=== PATIENT | male | born 1980 | race Caucasian/White ===

== ENCOUNTER 2018-04-07 09:47 | Emergency (ER) | payer OTHER ==
[2018-04-07 10:00] VITALS: BP 126/86
--- NOTE | 2018-04-07 10:21 | UC ---
Skin Complaint HPI - HPI Summary HPI Summary: The patient is a 37-year-old male with a bilateral groin rash 2 days. It causes a slightly burning sensation. He is not a diabetic. 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 - History of Current Complaint Chief Complaint: UCRash Time Seen by Provider: 04/07/18 10:10 Stated Complaint: RASH Hx Obtained From: Patient Onset/Duration: Gradual Onset, Lasting Days Timing: Constant Onset Severity: Mild Current Severity: Mild Pain Intensity: 1 Pain Scale Used: 0-10 Numeric Location: Generalized Character: Redness Aggravating Factor(s): Nothing Alleviating Factor(s): Nothing Associated Signs & Symptoms: Positive: Rash - Allergy/Home Medications Allergies/Adverse Reactions: Allergies Allergy/AdvReac Type Severity Reaction Status Date / Time No Known Allergies Allergy Verified 04/07/18 09:58 Home Medications: Home Medications Sertraline HCl [Zoloft] 25 mg PO DAILY 04/07/18 [History Confirmed 04/07/18] Review of Systems Constitutional: Negative Skin: Negative Eyes: Negative ENT: Negative Respiratory: Negative Cardiovascular: Negative Gastrointestinal: Negative Genitourinary: Negative Motor: Negative Neurovascular: Negative Musculoskeletal: Negative Neurological: Negative Psychological: Negative Is Patient Immunocompromised?: No All Other Systems Reviewed And Are Negative: Yes PMH/Surg Hx/FS Hx/Imm Hx Previously Healthy: Yes Other History Of: Negative For: Anticoagulant Therapy - Surgical History Surgical History: None - Family History Known Family History: Positive: Hypertension - Social History Alcohol Use: Weekly Substance Use Type: None Smoking Status (MU): Never Smoked Tobacco Physical Exam Triage Information Reviewed: Yes Appearance: Well-Appearing, No Pain Distress, Well-Nourished Vital Signs: Initial Vital Signs Temp 98.1 F 04/07/18 09:54 Pulse 80 04/07/18 09:54 Resp 18 04/07/18 09:54 BP 126/86 04/07/18 09:54 Pulse Ox 99 04/07/18 09:54 Vital Signs Reviewed: Yes Eyes: Positive: Conjunctiva Clear ENT: Positive: Hearing grossly normal. Negative: Nasal congestion, Nasal drainage, Trismus, Muffled voice, Hoarse voice Neck: Positive: Supple, Nontender, No Lymphadenopathy Respiratory: Positive: Lungs clear, Normal breath sounds, No respiratory distress Cardiovascular: Positive: RRR, No Murmur Musculoskeletal: Positive: ROM Intact, No Edema Neurological: Positive: Alert Psychological Exam: Normal Skin: Positive: Other - red macerated rash groin/well demarcated Course/Dx - Diagnoses Provider Diagnoses: tinea cruruis Discharge - Sign-Out/Discharge Documenting (check all that apply): Patient Departure - Discharge Plan Condition: Stable Disposition: HOME Patient Education Materials: Pope[employer] Itch (ED) Referrals: No Primary Care Phys,NOPCP [Primary Care Provider] - Additional Instructions: epsom salts cool compresses for 10 minutes twice daily the apply lotrimen cream (available OTC) use this for 2 weeks - Billing Disposition and Condition Condition: STABLE Disposition: Home
== END 2018-04-07 10:22 | disposition home or self-care (01) ==
LOC: UCEAST 09:47
DX: B35.6 Tinea cruris (principal)
CPT/HCPCS: 99212; G0463

== ENCOUNTER 2021-10-09 13:05 | Inpatient (IN) ==
[2021-10-09 14:00] LABS: ABS Lymphocytes 0.8 10^3/ul (1.0-4.8); ABS Monocytes 0.3 10^3/ul (0-0.8); ABS Neutrophils 5.9 10^3/ul (1.5-7.7); Eosinophil % 0.2 %; Hematocrit 44 % (42-52); Hemoglobin 14.9 g/dL (14.0-18.0); Lymphocyte % 11.9 %; Mean Corpuscular HGB Conc 34 g/dL (31-36); Mean Corpuscular Hemoglobin 29 pg (27-31); Mean Corpuscular Volume 85 fL (80-94); Mean Platelet Volume 7.7 fL (7.4-10.4); Platelet Count 325 10^3/uL (150-450); Red Blood Count 5.24 10^6 /uL (4.18-5.48); Red Cell Distribution Width 13 % (10-15)
[2021-10-09 14:17] LABS: ALT 17 U/L (7-52); AST 19 U/L (13-39); Albumin 4.7 g/dL (3.2-5.2); Albumin/Globulin Ratio 1.9 (1-3); Alkaline Phosphatase 74 U/L (35-149); Anion Gap 7 mmol/L (2-11); Blood Urea Nitrogen 15 mg/dL (6-24); CO2 Carbon Dioxide 26 mmol/L (22-32); Calcium 9.3 mg/dL (8.6-10.3); Chloride 106 mmol/L (101-111); Globulin 2.5 g/dL (2-4); Glucose 101 mg/dL (70-100); Potassium 3.8 mmol/L (3.5-5.0); Sodium 139 mmol/L (135-145); Total Protein 7.2 g/dL (6.4-8.9); eGFR CKD-EPI 110.1 (>60)
[2021-10-09 14:18] LABS: Urine Benzodiazepine Screen None Detected (None Detect); Urine Cannabinoids Screen None Detected (None Detect); Urine Opiates Screen None Detected (None Detect)
[2021-10-09 14:21] LABS: Urine Appearance Clear; Urine Bilirubin Negative (Negative); Urine Blood Negative (Negative); Urine Color Yellow; Urine Glucose Negative (Negative); Urine Ketones 1+ (Negative); Urine Nitrite Negative (Negative); Urine Protein Negative (Negative); Urine Specific Gravity 1.025 (1.002-1.030); Urine Urobilinogen Positive (Negative)
[2021-10-09 14:36] LABS: Acetaminophen < 15 mcg/mL; Alcohol, S < 13 mg/dL (<13); Salicylate < 2.50 mg/dL (<30)
[2021-10-09 14:51] LABS: TSH Ultra Thyroid Stim Horm 2.24 mcIU/mL (0.34-5.60)
[2021-10-09] MEDS ORDERED: Al Hydrox/Mg Hydrox/Simet LIQ 30 ML UDC PO PRN (18:09)
[2021-10-10] MEDS: Vitamin THERAPEUTIC TAB PO SCH (10:19)
[2021-10-11] MEDS: Vitamin THERAPEUTIC TAB PO SCH (10:00)
[2021-10-12] MEDS: Vitamin THERAPEUTIC TAB PO SCH (09:35)
[2021-10-13 08:38] LABS: HDL Cholesterol 54.9 mg/dL
[2021-10-13] MEDS: Vitamin THERAPEUTIC TAB PO SCH (09:59)
[2021-10-14] MEDS: Vitamin THERAPEUTIC TAB PO SCH (07:54)
[2021-10-15] MEDS: Vitamin THERAPEUTIC TAB PO SCH (09:33)
[2021-10-16] MEDS: Vitamin THERAPEUTIC TAB PO SCH (11:23)
[2021-10-17 10:56] LABS: Albumin 4.7 g/dL (3.2-5.2); Albumin/Globulin Ratio 1.7 (1-3); Calcium 10.2 mg/dL (8.6-10.3); Globulin 2.8 g/dL (2-4); Potassium 4.2 mmol/L (3.5-5.0); Total Bilirubin 0.7 mg/dL (0.2-1.0); Total Protein 7.5 g/dL (6.4-8.9); eGFR CKD-EPI 102.5 (>60)
[2021-10-17] MEDS: Vitamin THERAPEUTIC TAB PO SCH (11:02)
[2021-10-18] MEDS: Vitamin THERAPEUTIC TAB PO SCH (09:53)
[2021-10-19] MEDS: Vitamin THERAPEUTIC TAB PO SCH (07:39)
[2021-10-20] MEDS: Vitamin THERAPEUTIC TAB PO SCH (10:54)
[2021-10-21] MEDS: Vitamin THERAPEUTIC TAB PO SCH (09:40)
[2021-10-22] MEDS: Vitamin THERAPEUTIC TAB PO SCH (12:50)
[2021-10-22 14:25] LABS: ABS Lymphocytes 1.3 10^3/ul (1.0-4.8); ABS Monocytes 0.5 10^3/ul (0-0.8); ABS Neutrophils 7.6 10^3/ul (1.5-7.7); Eosinophil % 0.4 %; Hematocrit 48 % (42-52); Hemoglobin 16.3 g/dL (14.0-18.0); Lymphocyte % 13.6 %; Mean Corpuscular HGB Conc 34 g/dL (31-36); Mean Corpuscular Hemoglobin 29 pg (27-31); Mean Corpuscular Volume 84 fL (80-94); Mean Platelet Volume 7.8 fL (7.4-10.4); Nucleated Red Blood Cells % 0.1; Platelet Count 273 10^3/uL (150-450); Red Blood Count 5.65 10^6 /uL (4.18-5.48); Red Cell Distribution Width 13 % (10-15); White Blood Count 9.4 10^3/uL (3.5-10.8)
[2021-10-23] MEDS: Vitamin THERAPEUTIC TAB PO SCH (08:36)
[2021-10-23] MEDS ORDERED: risperiDONE-M 1 mg Oradis TAB PO SCH (09:00)
[2021-10-23] MEDS ORDERED: Haloperidol LIQ ORALSYR 2 MG/ML PO PRN (16:11)
[2021-10-23] MEDS: Haloperidol LIQ ORALSYR 2 MG/ML PO SCH (20:37)
[2021-10-24] MEDS: Haloperidol LIQ ORALSYR 2 MG/ML PO SCH (08:47)
[2021-10-24] MEDS: Vitamin THERAPEUTIC TAB PO SCH (08:48)
[2021-10-24] MEDS: Haloperidol LIQ ORALSYR 2 MG/ML PO PRN (14:37)
[2021-10-24] MEDS: RISPERIDONE 1 MG/ML PO SCH (20:28)
[2021-10-25] MEDS: Vitamin THERAPEUTIC TAB PO SCH (12:33)
[2021-10-25] MEDS: RISPERIDONE PO SCH (12:35)
[2021-10-25] MEDS: ORALSYR PO SCH (12:35)
[2021-10-25] MEDS: RISPERIDONE 1 MG/ML PO SCH (21:31)
[2021-10-26] MEDS: Haloperidol LIQ ORALSYR 2 MG/ML PO PRN ×3 (02:45→20:56)
[2021-10-26] MEDS: Vitamin THERAPEUTIC TAB PO SCH (09:54)
[2021-10-26] MEDS: RISPERIDONE PO SCH ×2 (09:54→20:56)
[2021-10-26] MEDS: ORALSYR PO SCH ×2 (09:54→20:56)
[2021-10-27] MEDS: Vitamin THERAPEUTIC TAB PO SCH (11:38)
[2021-10-27] MEDS: RISPERIDONE PO SCH ×2 (11:39→21:56)
[2021-10-27] MEDS: ORALSYR PO SCH ×2 (11:39→21:56)
[2021-10-27] MEDS: Haloperidol LIQ ORALSYR 2 MG/ML PO PRN (23:52)
[2021-10-28] MEDS: Vitamin THERAPEUTIC TAB PO SCH (07:20)
[2021-10-28] MEDS: RISPERIDONE PO SCH (20:28)
[2021-10-28] MEDS: ORALSYR PO SCH (20:28)
[2021-10-28] MEDS ORDERED: RISPERIDONE PO SCH (21:00)
[2021-10-28] MEDS ORDERED: ORALSYR PO SCH (21:00)
[2021-10-29] MEDS: Vitamin THERAPEUTIC TAB PO SCH (07:52)
[2021-10-29] MEDS: RISPERIDONE PO SCH (20:38)
[2021-10-29] MEDS: ORALSYR PO SCH (20:38)
[2021-10-30] MEDS: Vitamin THERAPEUTIC TAB PO SCH (09:32)
[2021-10-30] MEDS ORDERED: Paliperidone SUSTENNA 156 MG/1 ML IM ONE (10:35)
[2021-10-30] MEDS ORDERED: Paliperidone SUSTENNA 234 MG/1.5 ML IM ONE (12:00)
[2021-10-30 19:52] VITALS: BP 114/78
[2021-10-31] MEDS: Haloperidol LIQ ORALSYR 2 MG/ML PO PRN (00:14)
[2021-10-31] MEDS: Vitamin THERAPEUTIC TAB PO SCH (09:25)
== END 2021-10-31 11:25 | disposition home or self-care (01) | DRG 751 ==
LOC: ED 13:05 → BSU 20:53
PROVIDERS: ADMIT Psychiatry & Neurology Psychiatry; ATTEND Psychiatry & Neurology Psychiatry

== ENCOUNTER 2021-11-02 01:50 | Inpatient (IN) ==
[2021-11-02 02:56] LABS: ABS Eosinophils 0.1 10^3/ul (0-0.6); ABS Lymphocytes 1.3 10^3/ul (1.0-4.8); ABS Monocytes 0.5 10^3/ul (0-0.8); ABS Neutrophils 4.2 10^3/ul (1.5-7.7); Eosinophil % 1.2 %; Hematocrit 42 % (42-52); Hemoglobin 14.4 g/dL (14.0-18.0); Lymphocyte % 20.6 %; Mean Corpuscular HGB Conc 34 g/dL (31-36); Mean Corpuscular Hemoglobin 29 pg (27-31); Mean Corpuscular Volume 83 fL (80-94); Mean Platelet Volume 8.1 fL (7.4-10.4); Nucleated Red Blood Cells % 0.1; Platelet Count 241 10^3/uL (150-450); Red Blood Count 5.05 10^6 /uL (4.18-5.48); Red Cell Distribution Width 13 % (10-15); White Blood Count 6.1 10^3/uL (3.5-10.8)
[2021-11-02 03:11] LABS: ALT 20 U/L (7-52); AST 16 U/L (13-39); Albumin 4.5 g/dL (3.2-5.2); Alkaline Phosphatase 58 U/L (35-149); Anion Gap 8 mmol/L (2-11); Blood Urea Nitrogen 15 mg/dL (6-24); CO2 Carbon Dioxide 26 mmol/L (22-32); Calcium 9.8 mg/dL (8.6-10.3); Chloride 102 mmol/L (101-111); Globulin 2.3 g/dL (2-4); Glucose 135 mg/dL (70-100); Potassium 3.5 mmol/L (3.5-5.0); Sodium 136 mmol/L (135-145); Total Protein 6.8 g/dL (6.4-8.9); eGFR CKD-EPI 91.9 (>60)
[2021-11-02 03:38] LABS: Acetaminophen < 15 mcg/mL; Alcohol, S < 13 mg/dL (<13); Salicylate < 2.50 mg/dL (<30)
[2021-11-02 03:53] LABS: TSH Ultra Thyroid Stim Horm 3.27 mcIU/mL (0.34-5.60)
[2021-11-02 08:05] LABS: Urine Benzodiazepine Screen None Detected (None Detect); Urine Cannabinoids Screen None Detected (None Detect); Urine Opiates Screen None Detected (None Detect)
[2021-11-02 08:18] LABS: Urine Appearance Cloudy; Urine Bilirubin Negative (Negative); Urine Blood Negative (Negative); Urine Color Yellow; Urine Glucose Negative (Negative); Urine Ketones Negative (Negative); Urine Nitrite Negative (Negative); Urine Protein Negative (Negative); Urine Specific Gravity 1.025 (1.002-1.030); Urine Urobilinogen Negative (Negative)
[2021-11-02] MEDS ORDERED: Haloperidol 5 mg/ml SDV IV/IM 5 MG/ML AMP IM ONE (09:47)
[2021-11-02] MEDS ORDERED: diPHENhydraMINE IV 50 MG/ML 1 ml VIAL (BENADRYL) IM ONE (09:47)
[2021-11-02] MEDS ORDERED: Al Hydrox/Mg Hydrox/Simet LIQ 30 ML UDC PO PRN (13:20)
[2021-11-02] MEDS ORDERED: Haloperidol LIQ ORALSYR 2 MG/ML PO PRN (13:28)
[2021-11-03] MEDS ORDERED: Paliperidone SUSTENNA 156 MG/1 ML IM ONE (07:56)
[2021-11-03] MEDS ORDERED: RISPERIDONE 1 MG/ML PO SCH (21:00)
[2021-11-03] MEDS: OLANzapine 5 mg TAB*ODT PO PRN (23:05)
[2021-11-07] MEDS: OLANzapine 5 mg TAB*ODT PO PRN (02:12)
[2021-11-10 07:56] VITALS: BP 123/85
[2021-11-10] MEDS: OLANzapine 5 mg TAB*ODT PO PRN (13:38)
== END 2021-11-10 14:35 | disposition home or self-care (01) | DRG 750 ==
LOC: ED 01:50 → BSU 12:06
PROVIDERS: ADMIT Student in an Organized Health Care Education/Training Program; ATTEND Psychiatry & Neurology Psychiatry

== ENCOUNTER 2024-06-14 09:20 | Inpatient (IN) ==
[2024-06-14 15:16] LABS: ABS Lymphocytes 1.5 10^3/uL (1.0-4.8); ABS Monocytes 0.6 10^3/uL (0.0-1.1); ABS Neutrophils 8.5 10^3/uL (1.5-7.6); ABS Nucleated RBC 0.01 10^3/ul; Eosinophil % 0.2 %; Hematocrit 42.5 % (38-53); Hemoglobin 14.1 g/dL (13.2-16.3); Lymphocyte % 13.9 %; Mean Corpuscular Hemoglobin 27.8 pg (27-33); Mean Corpuscular Hgb Conc 33.2 g/dL (31-36); Mean Corpuscular Volume 83.6 fL (80-97); Mean Platelet Volume 8.2 fL (7.5-11.2); Nucleated Red Blood Cells % 0.1 %/100WBC (0.0-0.8); Platelet Count 311 10^3/uL (150-450); Red Blood Count 5.09 10^6/uL (4.06-5.63); Red Cell Distribution Width 13.9 % (12-17); White Blood Count 10.7 10^3/uL (3.6-10.2)
[2024-06-14 15:33] LABS: ALT 47 U/L (7-52); AST 37 U/L (13-39); Acetaminophen < 15 mcg/mL; Albumin 4.6 g/dL (3.2-5.2); Albumin/Globulin Ratio 2.3 (1-3); Alcohol, S < 13 mg/dL (<13); Alkaline Phosphatase 75 U/L (35-149); Anion Gap 11 mmol/L (2-16); Blood Urea Nitrogen 21 mg/dL (6-24); CO2 Carbon Dioxide 24 mmol/L (22-32); Calcium 9.4 mg/dL (8.6-10.3); Chloride 106 mmol/L (101-111); Creatinine, Serum 0.82 mg/dL (0.67-1.17); Glucose 92 mg/dL (70-100); Potassium 3.4 mmol/L (3.5-5.0); Salicylate < 2.50 mg/dL (<30); Sodium 141 mmol/L (135-145); Total Bilirubin 0.8 mg/dL (0.2-1.0); Total Protein 6.6 g/dL (6.4-8.9); Valproic Acid < 10.0 mcg/mL (50-100); eGFR CKD-EPI 110.4 (>60)
[2024-06-14 16:01] LABS: TSH Ultra Thyroid Stim Horm 2.49 mcIU/mL (0.34-5.60)
[2024-06-14] MEDS ORDERED: Al Hydrox/Mg Hydrox/Simet LIQ 30 ML UDC PO PRN (16:30)
[2024-06-14] MEDS: Valproic Acid LIQ 250 MG/5 ML UDC PO SCH (20:10)
[2024-06-14] MEDS: Atropine 1% (ORAL/SL) 15 ML BTL SL SCH (21:15)
[2024-06-17] MEDS: Polyethylene Glycol 3350 17 GM PACKET PO PRN (08:28)
[2024-06-17 08:32] LABS: HDL Cholesterol 42.9 mg/dL
[2024-06-19] MEDS: Polyethylene Glycol 3350 17 GM PACKET PO SCH (20:05)
[2024-06-20] MEDS: Cephalexin SUSP ORALSYR 50 MG/ML PO SCH (18:04)
[2024-06-21] MEDS: Magnesium CITRATE LIQ 300 ML BTL PO ONE (18:18)
[2024-06-21] MEDS: Valproic Acid LIQ 250 MG/5 ML UDC PO SCH (21:21)
[2024-06-22] MEDS: Magnesium CITRATE LIQ 300 ML BTL PO ONE (17:54)
[2024-06-23] MEDS: risperiDONE ER SUBCUT (NF) 100 MG/0.28 ML SYRINGE SUBCUT ONE (15:04)
[2024-06-24 09:18] LABS: ABS Lymphocytes 0.7 10^3/uL (1.0-4.8); ABS Monocytes 0.3 10^3/uL (0.0-1.1); ABS Neutrophils 6.6 10^3/uL (1.5-7.6); Eosinophil % 0.6 %; Hematocrit 45.2 % (38-53); Hemoglobin 15.3 g/dL (13.2-16.3); Mean Corpuscular Hemoglobin 28.4 pg (27-33); Mean Corpuscular Hgb Conc 33.8 g/dL (31-36); Mean Corpuscular Volume 84.1 fL (80-97); Mean Platelet Volume 8.3 fL (7.5-11.2); Platelet Count 264 10^3/uL (150-450); Red Blood Count 5.38 10^6/uL (4.06-5.63); Red Cell Distribution Width 13.9 % (12-17); White Blood Count 7.7 10^3/uL (3.6-10.2)
[2024-06-24 13:49] LABS: Albumin 4.8 g/dL (3.2-5.2); Albumin/Globulin Ratio 2.3 (1-3); Calcium 10.1 mg/dL (8.6-10.3); Creatinine, Serum 0.8 mg/dL (0.67-1.17); Globulin 2.1 g/dL (2-4); Potassium 4.5 mmol/L (3.5-5.0); Total Bilirubin 0.3 mg/dL (0.2-1.0); Total Protein 6.9 g/dL (6.4-8.9); eGFR CKD-EPI 111.2 (>60)
[2024-06-24 21:25] LABS: Urine Appearance No Cx Clear (Clear); Urine Bilirubin No Culture Negative (Negative); Urine Blood No Culture Negative (Negative); Urine Color No Culture Light-Yellow; Urine Glucose No Culture Negative (Negative); Urine Ketones No Culture Negative (Negative); Urine Leukocytes No Culture Negative Leu/uL (Negative); Urine Nitrite No Culture Negative (Negative); Urine Protein No Culture Negative (Negative); Urine Specific Gravity No Cx 1.009 (1.002-1.030); Urine Urobilinogen No Cx Negative (Negative); Urine pH No Culture 6.5 (5.0-8.0)
[2024-06-24 21:27] LABS: Urine Bacteria No Culture Absent /HPF (Absent); Urine Red Blood Cell No Cult Trace(0-2/hpf) /HPF (0-Trace); Urine White Blood Cell No Cult Trace(0-5/hpf) /HPF (0-Trace)
[2024-06-26 23:18] LABS: Clozapine 550 ng/mL (350-600); Clozapine & Norclozapine Level 717 ng/mL; Norclozapine 167 ng/mL
[2024-06-28 10:13] VITALS: BP 138/87
== END 2024-06-28 12:20 | disposition home or self-care (01) | DRG 750 ==
LOC: ED 09:20 → EDHOLD 16:30 → BSU 17:24
PROVIDERS: ADMIT Psychiatry & Neurology Psychiatry; ATTEND Psychiatry & Neurology Psychiatry